=== PATIENT | female | born 1960 | race Caucasian/White ===

== ENCOUNTER 2018-02-17 13:04 | Emergency (ER) | payer BC ==
[2018-02-17 13:15] VITALS: BP 170/82
[2018-02-17] MEDS ORDERED: methylPREDNISolone ACETATE 80* 80 MG/ML 1 ML VIAL IM ONE (13:35)
--- NOTE | 2018-02-17 13:44 | ED ---
Skin Complaint - HPI Summary HPI Summary: 57F presents with rash for the past couple weeks. She states that she thought she got into something outside. Her primary but her on a course of steroids and an antibiotic and it did not seem to get any better. She states she then saw a police detention attendant who thought it was psoriases and started her on meds for such. She states that the meds caused her ears to swell so she stopped them. She states the lesions spread to her scalp. She states only had improvement when was given IM injection of steroid. She has topical steroid that was prescribed that seems to make it worst so she stopped it. She states the rash is itchy. no fevers. heat is making the rash worst. is not currently taking any medication. - History of Current Complaint Pain Intensity: 0 <Niru Ivey - Last Filed: 02/17/18 14:03> <Estuardo Bartlett - Last Filed: 02/19/18 07:33> - History of Current Complaint Chief Complaint: UCRash Time Seen by Provider: 02/17/18 13:24 Stated Complaint: RASH - Allergy/Home Medications Allergies/Adverse Reactions: Allergies Allergy/AdvReac Type Severity Reaction Status Date / Time iodine Allergy Swelling Verified 02/17/18 13:16 Home Medications: Home Medications Escitalopram (NF) [Lexapro 10 mg (NF)] 10 mg PO DAILY 02/17/18 [History Confirmed 02/17/18] buPROPion HCl [Bupropion HCl Sr] 150 mg PO DAILY 02/17/18 [History Confirmed 11/02] PMH/Surg Hx/FS Hx/Imm Hx Endocrine/Hematology History: Denies: Hx Anticoagulant Therapy Cardiovascular History: Reports: Hx Hypertension Denies: Hx Myocardial Infarction - Cancer History Cancer Type, Location and Year: denies Hx Chemotherapy: No Hx Radiation Therapy: No Infectious Disease History: No Infectious Disease History: Denies: Traveled Outside the [place] in Last 30 Days - Family History Known Family History: Negative: Diabetes - Social History Alcohol Use: Occasionally Substance Use Type: Reports: Marijuana Smoking Status (MU): Never Smoked Tobacco <Niru Ivey - Last Filed: 02/17/18 14:03> Review of Systems Negative: Fever Negative: Chest Pain Negative: Shortness Of Breath Positive: Rash All Other Systems Reviewed And Are Negative: Yes <Niru Ivey - Last Filed: 02/17/18 14:03> Physical Exam Triage Information Reviewed: Yes Vital Signs On Initial Exam: Initial Vitals Temp Pulse Resp BP Pulse Ox 98 F 75 16 170/82 100 02/17/18 13:11 02/17/18 13:11 02/17/18 13:11 02/17/18 13:11 02/17/18 13:11 Vital Signs Reviewed: Yes Appearance: Positive: Well-Appearing Skin: Positive: Warm, Dry, Other - erythematous patches with some scaling across legs, back, arms, and scalp, some papules present also Head/Face: Positive: Normal Head/Face Inspection Eyes: Positive: Normal, EOMI, EL, Conjunctiva Clear ENT: Positive: Normal ENT inspection, Pharynx normal, TMs normal Respiratory/Lung Sounds: Positive: Clear to Auscultation, Breath Sounds Present Cardiovascular: Positive: Normal, RRR Musculoskeletal: Positive: Normal Neurological: Positive: Normal Psychiatric: Positive: Normal <Niru Ivey - Last Filed: 02/17/18 14:03> Vital Signs On Initial Exam: Initial Vitals Temp Pulse Resp BP Pulse Ox 98 F 75 16 170/82 100 02/17/18 13:11 02/17/18 13:11 02/17/18 13:11 02/17/18 13:11 02/17/18 13:11 <Estuardo Bartlett - Last Filed: 02/19/18 07:33> Diagnostics - Vital Signs Vital Signs Temp Pulse Resp BP Pulse Ox 02/17/18 13:11 98 F 75 16 170/82 100 <Niru Ivey - Last Filed: 02/17/18 14:03> - Vital Signs Vital Signs Temp Pulse Resp BP Pulse Ox 02/17/18 13:11 98 F 75 16 170/82 100 <Estuardo Bartlett - Last Filed: 02/19/18 07:33> Course/Dx - Course Course Of Treatment: 57F presents with rash for the past couple weeks. She states that she thought she got into something outside. Her primary but her on a course of steroids and an antibiotic and it did not seem to get any better. She states she then saw a police detention attendant who thought it was psoriases and started her on meds for such. She states that the meds caused her ears to swell so she stopped them. She states the lesions spread to her scalp. She states only had improvement when was given IM injection of steroid. She has topical steroid that was prescribed that seems to make it worst so she stopped it. She states the rash is itchy. no fevers. heat is making the rash worst. is not currently taking any medication. on exam has erythematous patches across body. some scaling present. patient states that wants to try aother steriod package but may be poision [place]? will try such but encourage to go back to derm as does not appear to be poision randee and will need further work up. will have follow up with primary as blood pressure is elevated at this visit and has dx of htn. patient understand and agrees with plan. - Differential Diagnoses - Skin Complaint Differential Diagnoses: Contact Dermatitis, Poison [place], Poison [place], Tinea, Other - psorias <Niru vIey - Last Filed: 02/17/18 14:03> <Estuardo Bartlett - Last Filed: 02/19/18 07:33> - Diagnoses Provider Diagnoses: Rash, Elevated blood pressure reading Discharge - Sign-Out/Discharge Documenting (check all that apply): Discharge/Admit/Transfer - Billing Disposition and Condition Condition: GOOD Disposition: Home <Niru Ivey - Last Filed: 02/17/18 14:03> - Billing Disposition and Condition Condition: GOOD Disposition: Home <Estuardo Bartlett - Last Filed: 02/19/18 07:33> - Discharge Plan Condition: Good Disposition: HOME Prescriptions: predniSONE TAB* [Deltasone 20 MG TAB*] 20 mg PO DAILY #18 tab Referrals: Yunior Heredia MD [Primary Care Provider] - Additional Instructions: will try steroid 3 tablets for 3 days, then 2 tablets for 3 days, then 1 tablet for 3 days starting tomorrow Use lotion supplied by police detention attendant Try a thick cream like eucerin on area apply calamine lotion Follow up with dermatology Return to ED if develop any new or worsening symptoms Per institutional requirements, I have reviewed the chart, however, I was not consulted specifically or made aware of this patient by the above midlevel provider. I did not personally evaluate, interact with , or disposition this patient.
== END 2018-02-17 14:00 | disposition home or self-care (01) ==
LOC: UCEAST 13:04
DX: R21 Rash and other nonspecific skin eruption (principal); R03.0 Elevated blood-pressure reading, without diagnosis of hypertension; Z91.09 Other allergy status, other than to drugs and biological substances
CPT/HCPCS: 96372; 99212; G0463; J1040

== ENCOUNTER → 2019-01-28 06:50 | Day surgery (SDC) | payer BC ==
[~2019-01-28 06:50] MED LIST: Buffered Lidocaine 1% SYRIN* 1 ML/SYRINGE INTRADERM ONE; Bupivacaine 0.5%* 50 ML VIAL ONE; Dexamethasone IV* 4 MG/ML 1 ML (4 MG) IV SLOW PU ONE; Dexamethasone IV* 4 MG/ML 1 ML (4 MG) ONE; Famotidine IV* 10 MG/ML 2 ML (20 mg) IV ONE; Famotidine IV* 10 MG/ML 2 ML (20 mg) ONE; Ketorolac INJ* 30 MG/ML 1 ML VIAL IV PRN; Ketorolac INJ* 30 MG/ML 1 ML VIAL ONE; Lactated Ringers 1000 ML Bag* 1,000 ML IV SCH; Lidocaine 1% INJ* 10 MG/ML 30 ML SDV ONE; Lidocaine 2.5%/Prilocain 2.5%* 5 GM TUBE ONE; Midazolam* 1 MG/ML 2 ML VIAL (2 MG) ONE; Naloxone* 0.4 MG/ML 1 ML VIAL IV PRN; Propofol* 10 MG/ML 20 ML BTL ONE; Propofol* 500 MG/50 ML BTL ONE; Remifentanil* 2 MG VIAL ONE; ceFAZolin 2 GM PREMIX in ORs 0 GM/0 ML BAG ONE; ceFAZolin 2 GM PREMIX in ORs 2 GM/50 ML BAG ONE; fentaNYL* 50 MCG/ML 2 ML VIAL (100 MCG VIAL) IV PRN
[2019-01-28 17:11] VITALS: BP 148/90
--- NOTE | 2019-01-29 03:29 | OP ---
DATE OF OPERATION: 01/28/19 [facility] DATE OF : 58 SERVICE: General Surgery. ATTENDING SURGEON: Gloria Forrester MD FURNITURE BUILDER: Candie Kat NP ANESTHESIOLOGIST: Dr. Shlomo Warren. ANESTHESIA: Local/MAC. PRE-OP DIAGNOSIS: Left breast cancer. POST-OP DIAGNOSIS: Left breast cancer. OPERATIVE PROCEDURE: Needle localized left breast lumpectomy and sentinel lymph node biopsy. ESTIMATED BLOOD LOSS: Minimal, less than 10 cc. SPECIMEN: Left breast mass and sentinel lymph nodes #1 and #2. INDICATION FOR SURGERY: Ms. Watson is a 58-year-old female who was found to have a left breast cancer after workup for an abnormal screening mammogram. 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 Given that the mass is not palpable, she agreed to undergo needle localized left breast lumpectomy and sentinal lymph node biopsy. She understood the risks, benefits, and alternatives of the procedure and she wished to proceed. DESCRIPTION OF PROCEDURE: The patient was brought back to the operating room and placed on the operating table in a supine position. Sequential compression devices were placed in the bilateral lower extremities for DVT prophylaxis. Antibiotics were administered prior to incision. The patient underwent local anesthesia. Her left breast and axilla were prepped and draped in normal sterile fashion. Prior to beginning the procedure, a time-out was performed, verifying the patient's name, MR number, the laterality of the procedure and the procedure to be performed. The wire was located at approximately 3 o'clock position, coming up briefly out of the breast and extending per the mammographic imaging slightly posteriorly and towards the nipple. A local anesthesia was administered to the subdermal area around the wire and an elliptical incision around the wire was made. The skin was divided down to the subcutaneous tissue and then a large cone of tissue was taken surrounding the wire posteriorly towards the chest wall. Once this cone of tissue was removed, it was marked, so that the orientation could be recognized. The short suture was placed at the superior margin, the medial suture was placed at the medial margin, and the long suture was placed at the lateral margin. Posteriorly, the very small mass was somewhat palpable. It appeared that the margin was clear; however, given that on imaging, it looked like this mass was somewhat more posterior and additional posterior margin was taken and it was marked as the true margin. Next, attention was turned towards performing the sentinel lymph node biopsy. An incision was made in the axilla and the skin was divided down to the subcutaneous tissue. The axillary fat pad was opened up and immediately a sentinel lymph node was identified using [place] counter. The in situ count was 3498 and the ex vivo count was 1651 of the sentinel lymph node #1. There was still some Dipti counter activity on the axilla; therefore, the second sentinel lymph node was identified and once it was identified, the in situ count was noted to be 1244 and ex vivo count was 944. After removal of the these 2 sentinel lymph nodes, axillary bed count was 10. Therefore, hemostasis was then obtained in the axilla. Once this was done, the subdermal layer was closed using interrupted 3-0 Vicryl sutures and the skin was closed using a running 4-0 Monocryl suture. Attention was then turned towards the left breast cavity. Very careful hemostasis was obtained. Clips were used to lorne the borders of the breast cavity to help facilitate radiation later and then once this was done, a small amount of local anesthesia was placed into the breast cavity. The dermis was closed using interrupted 3-0 Vicryl sutures. The skin was closed using a running 4-0 Monocryl suture. Sterile dressing was then placed over both of these incisions and then the patient was awoken and she was taken to the PACU in stable condition. At the end of the case, all counts were correct and I was present during the entirety of the case. [id number]/[facility] #: [id number] MIKE
== END | disposition home or self-care (01) ==
LOC: OR 06:50 → EDSTATUS 08:00
PROVIDERS: ATTEND Surgery
DX: C50.412 Malignant neoplasm of upper-outer quadrant of left female breast (principal); F17.210 Nicotine dependence, cigarettes, uncomplicated; L40.9 Psoriasis, unspecified; F41.8 Other specified anxiety disorders
CPT/HCPCS: 77061; 78195; 88307; 88342; A9270-GY; A9541; G0279; J0690; J1100; J1885; J2250; J2704; J3490